=== PATIENT | female | born 1960 | race Caucasian/White ===

== ENCOUNTER → 2021-10-03 | Day surgery (SDC) | payer OTHER ==
[~2021-10-03] VITALS: Ht 170.2 cm; Wt 88.5 kg
[~2021-10-03] MED LIST: ASCORBIC ACID500 MG PO; CENTRUM SILVER1 EAC1 PO; HCTZ25 MG PO; MOBIC7.5 MG PO; PEPCID20 MG PO; ULTRAM50 MG PO; ZYRTEC10 M3 PO; [UNRECOGNIZED DRUG - OTHER] PO
[2021-10-03 06:51] LABS: BASOPHIL 0.7 % (0-2); HCT 40.3 % (37.0-47.0); HGB 13.6 g/dl (12.5-16.0); LYMPHOCYTE 28.5 % (15-48); MCH 32.7 pg (25.0-31.0); MCHC 33.7 g/dL (32.0-36.0); MCV 96.9 fL (78.0-100.0); MONOCYTE 8.3 % (0-12); MPV 9.9 fL (6.0-9.5); NEUTROPHIL 57.2 % (41-80); NRBC 0; PLT 257 K/uL (150-400); RBC 4.16 M/uL (4.20-5.40); RDW 13.3 % (11.5-14.0); WBC 9.5 K/uL (4.0-10.5)
[2021-10-03 07:10] LABS: BUN/CREAT RATIO (CALC) 29.3 RATIO; CREATININE 0.58 mg/dL (0.51-0.95); POTASSIUM 3.9 mmol/L (3.5-5.1)
== END | disposition home or self-care (01) ==
LOC: FAS 09-12 14:30
PROVIDERS: Legal Medicine
DX: M79.89 Other specified soft tissue disorders (principal); L90.5 Scar conditions and fibrosis of skin; L72.0 Epidermal cyst; L92.8 Other granulomatous disorders of the skin and subcutaneous tissue
CPT/HCPCS: 36415; 80048; 85025; 93005; J0690; J1100; J2250; J2405; J2704; J2795; J3010; J7120